=== PATIENT | female | born 1965 | race African-American/Black ===

== ENCOUNTER 2016-03-31 18:11 | Emergency (ER) | payer OTHER ==
[~2016-03-31] VITALS: Ht 165.1 cm; Wt 59.0 kg
--- NOTE | ~2016-03-31 | EKG ---
[place] [address] [facility] [place] [address] ELECTROCARDIOGRAM REPORT Name: ASHANTI JAQUEZ Room #: DEP STEFANY Mcdonnell#: [id number] Admission: 03/31/16 Attend Phys: Discharge: 03/31/16 Date of : 61 Report #: [id number] THIS REPORT FOR: //name// [facility] ED Test Date: 2016-03-31 Test Time: 18:16:53 Pat Name: ASHANTI JAQUEZ Department: Room: Gender: F Plant General Manager: ,, : 1965 Requested By: Abi Prince Order Number: [id number] MD: Robinson Patel Measurements Intervals [place] Rate: 99 P: 61 NC: 152 QRS: 46 QRSD: 96 T: 25 QT: 376 QTc: 483 Interpretive Statements Sinus rhythm No significant abnormality No previous ECG available for comparison Electronically Signed On 04-02-2016 14:10:05 MEDICAL CHARGE ENTRY SPECIALIST by Robinson Patel [email or web address] <ELECTRONICALLY SIGNED> By: Robinson Patel MD, [facility] 04/02/16 1410 1816 1816 Robinson Patel MD, FAC /EPI
[2016-03-31 18:44] LABS: ABSOLUTE NEUTROPHILS 2.3 thou/uL (1.4-8.2); BASOPHILS 0.9 % (0.0-2.0); EOSINOPHILS 1.6 % (0.0-3.0); HEMATOCRIT 30.9 % (37.0-47.0); HEMOGLOBIN 10.7 gm/dL (12.0-15.0); LYMPHOCYTES 45.7 % (24.0-44.0); MCH 35.3 pg (26.0-34.0); MCHC 34.4 % (28.0-37.0); MCV 102.4 fL (80.0-100.0); MONOCYTES 9.4 % (1.0-8.0); PLATELET COUNT 177 thou/uL (150-400); POLYS 42.4 % (36.0-66.0); RBC 3.02 mil/uL (4.20-5.00); RDW 14.2 % (10.5-14.5); WBC 5.3 thou/uL (4.0-11.0)
[2016-03-31 18:45] LABS: MANUAL DIFF NO
[2016-03-31 18:56] LABS: ANION GAP 14 mmol/L (7-16); BUN 10 mg/dL (7-18); CALCIUM 8.9 mg/dL (8.5-10.1); CHLORIDE 104 mmol/L (98-107); CO2 29 mmol/L (21-32); CREATININE 0.8 mg/dL (0.6-1.3); GLUCOSE 160 mg/dL (70-99); POTASSIUM 3.4 mmol/L (3.5-5.1); SODIUM 147 mmol/L (136-145)
[2016-03-31 19:05] LABS: ALBUMIN 3.2 g/dL (3.4-5.0); ALKALINE PHOSPHATASE 368 U/L (46-116); SGOT 76 U/L (15-37); SGPT 22 U/L (30-65); TOTAL BILIRUBIN 0.5 mg/dL (<0.1-1.0); TROPONIN-I < 0.04 ng/mL (<0.04-0.07)
[2016-03-31 20:08] VITALS: BP 151/95
[2016-03-31] MEDS ORDERED: PREDNISONE 20 M20 MG PO (20:12)
[2016-03-31] MEDS ORDERED: DOXYCYCLINE 10100 MG PO (20:12)
[2016-03-31] MEDS ORDERED: VENTOLIN HFA 1818 GM INH (20:12)
== END 2016-03-31 20:26 | disposition home or self-care (01) ==
LOC: ER 18:11
PROVIDERS: Emergency Medicine
DX: J20.9 Acute bronchitis, unspecified (principal); R06.00 Dyspnea, unspecified; I10 Essential (primary) hypertension; E11.9 Type 2 diabetes mellitus without complications; F17.210 Nicotine dependence, cigarettes, uncomplicated; F10.99 Alcohol use, unspecified with unspecified alcohol-induced disorder

== ENCOUNTER 2016-04-10 21:47 | Emergency (ER) | payer OTHER ==
[~2016-04-10] VITALS: Ht 167.6 cm; Wt 63.5 kg
--- NOTE | ~2016-04-10 | EKG ---
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: VANESSA : 1965 Requested By: Abi Prince Order Number: [id number] MD: Robinson Patel Measurements Intervals [place] Rate: 90 P: 46 MS: 166 QRS: 34 QRSD: 98 T: 33 QT: 414 QTc: 507 Interpretive Statements Sinus rhythm No significant abnormality Compared to ECG 03/31/2016 18:16:53 No significant changes Electronically Signed On 04-11-2016 7:50:47 PILING CUTTER by Robinson Patel [email or web address] <ELECTRONICALLY SIGNED> By: Robinson Patel MD, [facility] 04/11/16 0750 2154 2154 Robinson Patel MD, FACC /EPI
--- NOTE | ~2016-04-10 | EKG ---
[place] [address] [employer] [facility] [place] [address] ELECTROCARDIOGRAM REPORT Name: LEONOR JAQUEZMIE [facility] #: [facility] [id number] Admission: 04/10/16 Attend Phys: Discharge: 04/11/16 Date of : 61 Report #: [id number] THIS REPORT FOR: //name// [facility] ED Test Date: 2016-04-11 Test Time: 00:28:21 Pat Name: ASHANTI JAQUEZ Department: Room: Gender: F Fishing Vessel Mate: ander : 1965 Requested By: Abi Prince Order Number: [id number] MD: Robinson Patel Measurements Intervals [place] Rate: 87 P: 46 UT: 192 QRS: 34 QRSD: 95 T: -1 QT: 430 QTc: 518 Interpretive Statements Sinus rhythm Atrial premature complex Prolonged QT interval Nonspecific T wave abnormality Compared to ECG 03/31/2016 18:16:53 Atrial premature complex(es) now present Prolonged QT interval now present Electronically Signed On 04-11-2016 7:51:29 DINING ROOM MAID by Robinson Patel [email or web address] <ELECTRONICALLY SIGNED> By: Robinson Patel MD, [facility] 04/11/16 0751 0028 Robinson Patel MD, [facility] /EPI
[~2016-04-10 21:47] MED LIST: DOXYCYCLINE 10100 MG PO; PREDNISONE 20 M20 MG PO; VENTOLIN HFA 1818 GM INH
[2016-04-10 22:37] LABS: HEMATOCRIT 28.9 % (37.0-47.0); HEMOGLOBIN 9.8 gm/dL (12.0-15.0); MCH 35.5 pg (26.0-34.0); MCHC 34.1 % (28.0-37.0); MCV 104.2 fL (80.0-100.0); PLATELET COUNT 162 thou/uL (150-400); RBC 2.77 mil/uL (4.20-5.00); RDW 14.6 % (10.5-14.5); WBC 5.6 thou/uL (4.0-11.0)
[2016-04-10 22:40] LABS: MANUAL DIFF YES
[2016-04-10 22:47] LABS: ANION GAP 14 mmol/L (7-16); BUN 15 mg/dL (7-18); CALCIUM 8.7 mg/dL (8.5-10.1); CHLORIDE 101 mmol/L (98-107); CO2 27 mmol/L (21-32); CREATININE 0.8 mg/dL (0.6-1.3); GLUCOSE 227 mg/dL (70-99); POTASSIUM 3.4 mmol/L (3.5-5.1); SODIUM 142 mmol/L (136-145)
[2016-04-10 22:50] LABS: APTT 26.4 Seconds (24.5-32.8); PROTIME 10.7 Seconds (9.3-11.4)
[2016-04-10 23:01] LABS: ALBUMIN 3.5 g/dL (3.4-5.0); ALKALINE PHOSPHATASE 369 U/L (46-116); NT-PRO BRAIN NAT PEPTIDE 30 pg/mL (<300); SGOT 124 U/L (15-37); SGPT 31 U/L (30-65); TOTAL BILIRUBIN 0.5 mg/dL (<0.1-1.0); TOTAL PROTEIN 8.4 g/dL (6.4-8.2); TROPONIN-I < 0.04 ng/mL (<0.04-0.07)
[2016-04-10 23:06] LABS: ABSOLUTE NEUTROPHILS 2.6 thou/uL (1.4-8.2); MACROCYTES 1+; TOTAL CELL COUNT 100
[2016-04-11] MEDS ORDERED: CHLORDIAZEPOXID25 M1 PO (01:00)
[2016-04-11 01:26] VITALS: BP 98/62
== END 2016-04-11 01:27 | disposition home or self-care (01) ==
LOC: ER 21:47
PROVIDERS: Emergency Medicine
DX: R07.89 Other chest pain (principal); F10.129 Alcohol abuse with intoxication, unspecified; I10 Essential (primary) hypertension; E11.9 Type 2 diabetes mellitus without complications; F17.210 Nicotine dependence, cigarettes, uncomplicated; F15.10 Other stimulant abuse, uncomplicated; Y90.8 Blood alcohol level of 240 mg/100 ml or more

== ENCOUNTER 2017-02-04 01:34 | Inpatient (IN) | payer OTHER ==
[2017-02-04] VITALS (7 sets, daily range): BP systolic 102–157; BP diastolic 69–96
[~2017-02-04] VITALS: Ht 167.6 cm; Wt 66.8 kg
--- NOTE | ~2017-02-04 | HC ---
[facility] [place] [address] CONSULTATION Name: ASHANTI JAQUEZ Room #: 204-P [facility] Maged Mcdonnell#: [id number] Admission: 02/04/17 Attend Phys: Anderson Rosario MD Discharge: Date of : 61 Report #: [id number] THIS REPORT FOR: //name// CC: Anderson KOEHLER PCP DATE OF SERVICE: 02/04/2017 REASON FOR CONSULTATION: Chest pain. HISTORY OF PRESENT ILLNESS: The patient is a 51-year-old woman with hypertension, prior cardiac arrest with defibrillator implantation, hypertension and diabetes. She has terrible arthritic neck pain and was seen at [facility] about a week ago and admitted. Her father and for a variety of family reasons, signed out AMA to be with her mother and other family members. She was admitted for the same problem that she was admitted with now which is upper neck and back pain. This has a positional component. She has occasional chills. She denies fevers. She denies chest heaviness, pressure or ischemic type symptoms. No orthopnea, paroxysmal nocturnal dyspnea or lower extremity edema. She reports that her defibrillator was assessed during her hospitalization a week ago and no problems or rhythm abnormalities were identified. She normally sees Dr. Diaz. 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 A recent echocardiogram, which I have reviewed, demonstrated normal left ventricular systolic function, valvular heart disease was absent. ALLERGIES: No known drug allergies. MEDICATIONS: Include carvedilol 25 mg twice daily, Aldactone 25 mg twice daily, Zestril 5 mg daily, glipizide 5 mg daily. PAST MEDICAL HISTORY: Notable for hypertension, diabetes, prior cardiac arrest in [address] Decl[facility] ICD placement. SOCIAL HISTORY: She is a smoker and drinker. FAMILY HISTORY: Unremarkable for premature coronary artery disease. REVIEW OF SYSTEMS: All systems negative except as that noted above. PHYSICAL EXAMINATION: GENERAL: A pleasant woman who describes ongoing neck and upper chest pain. VITAL SIGNS: Blood pressure is 125/78, heart rate of 85 and regular. She is afebrile, 5 feet 6 inches tall, 141 pounds. HEENT: There are neither xanthelasma, subcutaneous xanthomata, oral mucosal or digital cyanosis or kyphoscoliosis present. CHEST: Clear to auscultation and percussion. [facility] [address] [place] [address] CONSULTATION Name: [facility] Room #: [address] [place] [address] Maged Mcdonnell#: [id number] Admission: 02/04/17 Attend Phys: Anderson Rosario MD Discharge: Date of : 61 Report #: [id number] CARDIOVASCULAR: Regular rate and rhythm with normal S1, S2. Jugular venous pressure is not elevated. ABDOMEN: Soft and nontender. EXTREMITIES: Without edema. Radial pulses are 2+. NEUROLOGIC: She is alert with a nonfocal exam. LABORATORY DATA: Sodium 144, potassium 3.6, creatinine 0.9, alkaline phosphatase 162, ALT 15, GGTP 358. ProBNP is normal. Alcohol level of 321 while tox screen negative. White count 6.8, hemoglobin 8.8, platelet count 204. RADIOLOGICAL DATA: Chest x-ray is normal. EKG sinus rhythm, normal tracing. IMPRESSION: 1. Upper neck and chest pain consistent with musculoskeletal discomfort. 2. History of remote cardiac arrest with ICD placement. 3. Hypertension. 4. Diabetes. 5. Alcohol dependency. 6. Tobacco dependency. RECOMMENDATIONS: 1. Resume usual cardiac medicines. 2. Volume status is stable. No additional cardiovascular testing is needed at this point. She has had her ICD recently interrogated. Her presenting pain I do not believe is related to myocardial ischemia. I have discussed these issues with the patient in detail. Thank you for asking me to participate in her care. I will be available as issues and problems arise. I agree with aggressive correction of multiple metabolic derangements as has been started. <ELECTRONICALLY SIGNED> By: Robinson Patel MD, FACC 02/05/17 0748 0823 1816 Robinson Patel MD, FACC /nt
--- NOTE | ~2017-02-04 | EKG ---
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 Receptionist: LEANDRA : 1965 Requested By: Mauro Deluna Order Number: [id number] MD: Robinson Patel Measurements Intervals [place] Rate: 96 P: 64 DC: 185 QRS: 55 QRSD: 93 T: 37 QT: 396 QTc: 501 Interpretive Statements Sinus rhythm Borderline prolonged QT interval Compared to ECG 05/12/2016 22:07:02 Sinus tachycardia no longer present QT interval shortened ST and T wave abnormality less pronounced Electronically Signed On 02-04-2017 11:23:22 SQL SERVER DBA by Robinson Patel [email or web address] <ELECTRONICALLY SIGNED> By: Robinson Patel MD, [facility] 02/04/17 1123 0140 0140 Robinson Patel MD, [facility] /EPI
[~2017-02-04 01:34] MED LIST changes: +CHLORDIAZEPOXID25 M1 PO
[2017-02-04] MEDS ORDERED: CARVEDILOL25 MG PO (01:49)
[2017-02-04] MEDS ORDERED: ALDACTONE25 MG PO (01:49)
[2017-02-04] MEDS ORDERED: LISINOPRIL5 MG PO (01:50)
[2017-02-04] MEDS ORDERED: GLUCOTROL5 MG PO (01:50)
[2017-02-04 01:59] LABS: HEMATOCRIT 27.3 % (37.0-47.0); HEMOGLOBIN 8.8 gm/dL (12.0-15.0); MCH 31.4 pg (26.0-34.0); MCHC 32.3 g/dL (28.0-37.0); PLATELET COUNT 204 thou/uL (150-400); RBC 2.81 mil/uL (4.20-5.00); RDW 15.9 % (10.5-14.5); WBC 6.8 thou/uL (4.0-11.0)
[2017-02-04 02:02] LABS: ANION GAP 12 mmol/L (7-16); BUN 15 mg/dL (7-18); CALCIUM 9.3 mg/dL (8.5-10.1); CHLORIDE 104 mmol/L (98-107); CO2 28 mmol/L (21-32); CREATININE 0.9 mg/dL (0.6-1.0); GLUCOSE 136 mg/dL (74-106); MANUAL DIFF YES; POTASSIUM 3.6 mmol/L (3.5-5.1); SODIUM 144 mmol/L (136-145)
[2017-02-04 02:11] LABS: ALBUMIN 3.3 g/dL (3.4-5.0); ALKALINE PHOSPHATASE 162 U/L (46-116); MAGNESIUM 1.4 mg/dL (1.8-2.4); SALICYLATE < 2.8 mg/dL (2.8-20.0); SGOT 37 U/L (15-37); SGPT 15 U/L (30-65); TOTAL BILIRUBIN 0.6 mg/dL (<0.1-1.0); TROPONIN-I < 0.04 ng/mL (<0.06)
[2017-02-04 02:12] LABS: APTT 28.5 Seconds (24.5-32.8)
[2017-02-04 02:13] LABS: ACETAMINOPHEN < 2 ug/mL (10-30)
[2017-02-04 02:27] LABS: ABSOLUTE NEUTROPHILS 3.7 thou/uL (1.4-8.2); LARGE PLATELETS OCCASIONAL; TOTAL CELL COUNT 100
[2017-02-04 05:21] LABS: PHOSPHORUS 3.4 mg/dL (2.5-4.9)
[2017-02-04] MEDS ORDERED: METFORMIN HCL500 MG PO (05:38)
[2017-02-04] MEDS ORDERED: ASPIR 8181 M1 PO (05:39)
[2017-02-04] MEDS ORDERED: FOLIC ACID1 MG PO (05:45)
[2017-02-04] MEDS ORDERED: CENTRUM SILVER1 EAC4 PO (05:48)
[2017-02-04 06:42] LABS: FOLIC ACID > 40.0 ng/mL (8.6-58.9)
[2017-02-04 06:51] LABS: URINE BILIRUBIN NEGATIVE (Negative); URINE BLOOD 3+ (Negative); URINE COLOR RED; URINE GLUCOSE-RANDOM* 3+ (Negative); URINE KETONES 1+ (Negative); URINE PROTEIN (DIPSTICK) 3+ (Negative)
[2017-02-04 07:00] LABS: AMP/METHAMP Negative (Negative); BARBITURATES Negative (Negative); BENZODIAZEPINES Negative (Negative); COCAINE Negative (Negative); METHADONE Negative (Negative); OPIATES Negative (Negative); PCP Negative (Negative); THC Negative (Negative)
[2017-02-04 07:02] LABS: URINE LEUKOCYTES-REFLEX 2+ (Negative)
[2017-02-04 07:03] LABS: CASTS None Seen /LPF (None Seen); CRYSTALS None Seen /LPF (None Seen); SQUAMOUS None Seen /LPF (0-3); URINE RBC >20 Many /HPF (0-2)
[2017-02-04 07:04] LABS: URINE WBC-REFLEX 0-5 Rare /HPF (0-5)
[2017-02-04 12:17] LABS: % SATURATION 13 % (20-39); IRON 41 ug/dL (50-170); TIBC 322 ug/dL (250-450); UIBC 281 ug/dL
[2017-02-04 15:05] LABS: FREE T4 1.2 ng/dL (0.82-1.77)
[2017-02-05 03:45] LABS: HEMATOCRIT 24.9 % (37.0-47.0); HEMOGLOBIN 8.1 gm/dL (12.0-15.0); MCH 31.6 pg (26.0-34.0); MCHC 32.5 g/dL (28.0-37.0); MCV 97.2 fL (80.0-100.0); RBC 2.56 mil/uL (4.20-5.00); RDW 15.7 % (10.5-14.5); WBC 6.3 thou/uL (4.0-11.0)
[2017-02-05 03:59] LABS: ALBUMIN 2.6 g/dL (3.4-5.0); CALCIUM 8.9 mg/dL (8.5-10.1); CREATININE 0.7 mg/dL (0.6-1.0); POTASSIUM 4.7 mmol/L (3.5-5.1); TOTAL BILIRUBIN 0.9 mg/dL (<0.1-1.0); TOTAL PROTEIN 7.6 g/dL (6.4-8.2)
[2017-02-05 04:48] VITALS: BP 132/86
[2017-02-05 07:35] VITALS: BP 139/95
[2017-02-05 09:06] LABS: IgA 461 mg/dL (87-352); IgG 1560 mg/dL (700-1600); IgM 159 mg/dL (26-217)
[2017-02-05] MEDS ORDERED: HYDROCODONE-AP1 EAC6 PO (09:51)
[2017-02-05 11:41] VITALS: BP 157/95
[2017-02-05] MEDS ORDERED: CIPRO500 MG PO (12:54)
[2017-02-05] MEDS ORDERED: PROTONIX40 M1 PO (12:54)
[2017-02-05 15:34] VITALS: BP 110/68
[2017-02-05 17:15] VITALS: BP 110/68
[2017-02-06 13:09] LABS: KAPPA/LAMBDA RATIO 1.16 (0.26-1.65); LAMBDA FREE LIGHT CHAINS 55.8 mg/L (5.7-26.3)
== END 2017-02-05 18:00 | disposition home or self-care (01) | DRG 313 ==
LOC: ER 01:34 → EROBS 03:28 → 2N 03:28
PROVIDERS: Emergency Medicine; Hospitalist; Internal Medicine; Nurse Practitioner Family
DX: R07.89 Other chest pain (principal); N39.0 Urinary tract infection, site not specified; F10.239 Alcohol dependence with withdrawal, unspecified; I10 Essential (primary) hypertension; J44.9 Chronic obstructive pulmonary disease, unspecified; I25.10 Atherosclerotic heart disease of native coronary artery without angina pectoris; E11.9 Type 2 diabetes mellitus without complications; F17.210 Nicotine dependence, cigarettes, uncomplicated; D64.9 Anemia, unspecified; E83.42 Hypomagnesemia; M19.90 Unspecified osteoarthritis, unspecified site; F39 Unspecified mood [affective] disorder; F10.229 Alcohol dependence with intoxication, unspecified; Z95.810 Presence of automatic (implantable) cardiac defibrillator; Z79.899 Other long term (current) drug therapy; Z71.41 Alcohol abuse counseling and surveillance of alcoholic; Z71.6 Tobacco abuse counseling; Z79.82 Long term (current) use of aspirin; Z83.3 Family history of diabetes mellitus; Z82.49 Family history of ischemic heart disease and other diseases of the circulatory system
CPT/HCPCS: 10081

== ENCOUNTER 2017-02-08 17:33 | Inpatient (IN) | payer OTHER ==
[~2017-02-08] VITALS: Ht 167.6 cm; Wt 65.0 kg
--- NOTE | ~2017-02-08 | HC ---
[facility] [place] [address] CONSULTATION Name: ASHANTI JAQUEZ Room #: 214-P ADM IN M.R.#: [id number] Admission: 02/08/17 Attend Phys: Asad Macario DO Discharge: Date of : 61 Report #: [id number] THIS REPORT FOR: //name// CC: Asad Macario NO PCP REASON FOR CONSULTATION: I was asked to evaluate concerning positive blood cultures. HISTORY OF PRESENT ILLNESS: The patient was a 51-year-old with history of alcohol intoxication, neck pain for the last week or two. She does have an AICD with a history of hypertension, coronary artery disease, cardiac arrest in 2009. She has alcoholic cardiomyopathy. She was hospitalized in 01/2012 with chest pain and alcohol intoxication. Her initial evaluation notes no headache or neurologic issues. She was later dismissed. Blood cultures that were obtained have grown coag-negative staph from 02/04/2017. Then, on 02/08/2017, she grew bacillus species. No documented fever or chills. She does have occasional sweat. She reports that this is related to her menopause. REVIEW OF SYSTEMS: Notes no skin lesions or wounds. She has denied street drugs. Reports her pain mostly in her posterior neck and headache mostly on the right. She does have some complaints of pain down her arms, but not typical radicular symptoms. There has been no weakness in her arms. There has been no change in lower extremity strength. She has had no complaint of unsteadiness. Denies any specific trauma. Actually had a CT scan of her cervical spine and head in April, which showed degenerative joint disease. No cough or sputum production. No chest pain. No nausea, vomiting or diarrhea. No dysuria or frequency. LABORATORY STUDIES: From her previous admission notes a sedimentation rate of 131. Her immunoglobulins showed a mild increase in her IgA with a normal immunofixation pattern. Her B12 and folate were adequate. She has mild increase in kappa and lambda chains with a normal ratio. Her urinalysis on that admission showed protein, glucose, ketones and some blood. Repeat urinalysis this admission was normal. ALLERGIES: None known. MEDICATIONS: As noted on MAY, including ciprofloxacin at some point in time, unclear if she was dismissed home on this or not. She was on ceftriaxone for 24 hours during her last hospital stay. PAST MEDICAL HISTORY: Hypertension, diabetes, cardiac arrest, [facility]. Declan ICD, alcoholic cardiomyopathy, tobacco use. SOCIAL HISTORY: In addition to the above, unremarkable. [facility] [address] [place] [address] CONSULTATION Name: [facility] Room #: 214-P [facility] IN M.R.#: [id number] Admission: 02/08/17 Attend Phys: Asad Macario DO Discharge: Date of : 61 Report #: [id number] FAMILY HISTORY: Noncontributory. REVIEW OF SYSTEMS: As noted above. PHYSICAL EXAMINATION: VITAL SIGNS: Afebrile, hemodynamically stable. GENERAL: She is alert, cooperative and pleasant, in no acute distress. SKIN: Unremarkable. LYMPH: Unremarkable. HEENT: Unremarkable. NECK: Tender posteriorly throughout the cervical spine. No adenopathy in the neck. She did guard a bit when doing range of motion. No axillary adenopathy. CHEST: Clear. HEART: Regular. AICD pocket unremarkable. ABDOMEN: Soft, nontender. No hepatosplenomegaly or mass appreciated. EXTREMITIES: Unremarkable. Strength in her upper extremities and lower extremities is normal. Sensation intact. Deep tendon reflexes normal. LABORATORY STUDIES: Blood cultures as noted above with 1 of 2 from 02/04/2017 growing coag-negative staph, and 1 of 2 from 02/08/2017 showing a bacillus species. Sodium 138, potassium 4, bicarbonate 27, creatinine 1.1, glucose 128. Liver function tests: Alkaline phosphatase 120, ALT 12. Alcohol level was negative this admission, was 321 on last admission. Drug screen was positive for opiates. Hemoglobin 8.4, WBC 5.2, platelet count 255,000, 72% neutrophils, 16% lymphs. During the last hospital stay, her sedimentation rate was 131. X-rays of the thoracic spine, unremarkable. C-spine, degenerative arthritis. Zenker's diverticulum in the proximal esophagus and chest x-ray was clear. IMPRESSION: A 51-year-old with alcoholism and recent hospitalization for acute alcohol intoxication. She had 2 blood cultures that were positive over this 4-day span, different organisms, most consistent with contamination Cervical neck pain seems most likely musculoskeletal in nature. I questioned whether she had an injury or fall associated with her intoxication. This would not explain, however, the elevated sedimentation rate. PLAN: I would recommend further imaging of her cervical spine to ensure neither infectious or traumatic injury is present. We will repeat her sedimentation rate and CRP. We will withhold antibiotics at this time. We will have Cardiology perform echocardiogram and proceed from there. <ELECTRONICALLY SIGNED> By: Mauro Rhodes MD 02/11/17 0918 1048 180 Mauro Rhodes MD /nt
--- NOTE | ~2017-02-08 | 2DMMODE ---
[facility] [address] [place] [address] 2 D/M-MODE ECHOCARDIOGRAM Name: ASHATNI JAQUEZ Room #: 214-P ADM IN M.R.#: [id number] Admission: 02/08/17 Attend Phys: Asad Macario, Discharge: Date of : 61 Date of Service: 02/12/17 0941 Report #: [id number] THIS REPORT FOR: //name// ADDENDUM APPROVED REPORT Study performed: 02/12/2017 08:01:16 EXAM: Comprehensive 2D, Doppler, and color-flow Echocardiogram Patient Location: Bedside Room #: 214 Status: stat BSA: 1.73 HR: 82 bpm BP: 116/74 mmHg Rhythm: NSR Other Information Study Quality: Adequate/patient restless Indications Positive blood cultures. Hx: Cardiac arrest, AICD, alcoholic cardiomyopathy, HTN, DM. 2D Dimensions RVDd: 33.64 mm LVEF(%): 55.75 (>50%) IVSd: 10.38 (7-11mm) LVOT Diam: 20.26 (18-24mm) LVDd: 48.57 mm PWd: 10.06 (7-11mm) Ascending Ao: 28.57 (22-36mm) LVDs: 34.44 (25-40mm) Aortic Root: 26.34 mm Barnes's LVEF: 55.75 % Volumes Left Atrial Volume (Systole) Single Plane 4CH: 34.02 mL Single Plane 2CH: 46.24 mL LA ESV Index: 26.00 mL/m2 Aortic Valve AoV Peak Rey.: 1.17 m/s AO Peak Gr.: 5.50 mmHg LVOT Max P.47 mmHg LVOT Max V: 0.79 m/s LOPEZ Vmax: 2.16 cm2 Mitral Valve E/A Ratio: 0.8 [facility] [place] [address] 2 D/M-MODE ECHOCARDIOGRAM Name: ASHANTI JAQUEZ Room #: 214-P [facility] IN .R.#: [id number] Admission: 02/08/17 Attend Phys: Asad Macario, Discharge: Date of : 61 Date of Service: 02/12/17 0941 Report #: [id number] MV Decel. Time: 216.90 ms MV E Max Rey.: 0.46 m/s MV A Rey.: 0.61 m/s MV PHT: 62.90 ms IVRT: 69.20 ms Pulmonary Valve PV Peak Rey.: 0.88 m/s PV Peak Gr.: 3.07 mmHg Pulmonary Vein P Vein S: 0.78 m/s P Vein A: 0.36 m/s P Vein D: 0.42 m/s P Vein A Dur.: 121.1 msec P Vein S/D Ratio: 1.86 Tricuspid Valve TR Peak Rey.: 2.48 m/s RAP Estimate: 5.00 mmHg TR Peak Gr.: 24.57 mmHg PA Pressure: 30.00 mmHg Left Ventricle The left ventricle is normal size. There is normal left ventricular wall thickness. Left ventricular systolic function is normal. LVEF is 50-50%. Mild diastolic dysfunction is present (impaired relaxation pattern). Right Ventricle The right ventricle is normal size. The right ventricular systolic function is normal. Atria The left atrium size is normal. The right atrium size is normal. Aortic Valve The aortic valve is normal in structure. No aortic regurgitation is present. There is no aortic valvular stenosis. Mitral Valve The mitral valve is normal in structure. Mild mitral regurgitation. Tricuspid Valve The tricuspid valve is normal in structure. Mild tricuspid regurgitation. Estimated PAP is 30mmHg. Pulmonic Valve [address] [address] 2 D/M-MODE ECHOCARDIOGRAM Name: [facility] Room #: 214-P ADM IN ..#: [id number] Admission: 02/08/17 Attend Phys: Asad Macario, Discharge: Date of : 61 Date of Service: 02/12/17 0941 Report #: [id number] The pulmonary valve is normal in structure. Trace pulmonic regurgitation. Great Vessels The aortic root is normal in size. The ascending aorta is normal in size. IVC is normal in size and collapses >50% with inspiration. Pericardium There is no pericardial effusion. <Conclusion> The left ventricle is normal size. LVEF is 45-50%. The aortic valve is normal in structure. The mitral valve is normal in structure. Mild mitral regurgitation. The tricuspid valve is normal in structure. Mild tricuspid regurgitation. Estimated PAP is 30mmHg. The pulmonary valve is normal in structure. Trace pulmonic regurgitation. There is no pericardial effusion. <ELECTRONICALLY SIGNED> By: Gurdeep Mckeon MD 02/12/17940 0 0 Gurdeep Mckeon MD /INF
[~2017-02-08 17:33] MED LIST changes: +ALDACTONE25 MG PO; +ASPIR 8181 M1 PO; +CARVEDILOL25 MG PO; +CENTRUM SILVER1 EAC4 PO; +CIPRO500 MG PO; +FOLIC ACID1 MG PO; +GLUCOTROL5 MG PO; +HYDROCODONE-AP1 EAC6 PO; +LISINOPRIL5 MG PO; +METFORMIN HCL500 MG PO; +PROTONIX40 M1 PO
[2017-02-08 17:38] VITALS: BP 132/82
[2017-02-08 18:36] LABS: HEMATOCRIT 29.7 % (37.0-47.0); HEMOGLOBIN 9.6 gm/dL (12.0-15.0); MCH 31.5 pg (26.0-34.0); MCHC 32.4 g/dL (28.0-37.0); MCV 97.3 fL (80.0-100.0); PLATELET COUNT 332 thou/uL (150-400); RBC 3.05 mil/uL (4.20-5.00); WBC 8.2 thou/uL (4.0-11.0)
[2017-02-08 18:37] LABS: MANUAL DIFF YES
[2017-02-08 18:45] LABS: CALCIUM 10.1 mg/dL (8.5-10.1)
[2017-02-08 18:49] LABS: ALBUMIN 3.3 g/dL (3.4-5.0); DIRECT BILIRUBIN 0.1 mg/dL (<0.1-0.3); TOTAL BILIRUBIN 0.6 mg/dL (<0.1-1.0); TOTAL PROTEIN 9.5 g/dL (6.4-8.2)
[2017-02-08 18:54] LABS: ABSOLUTE NEUTROPHILS 5.9 thou/uL (1.4-8.2); TOTAL CELL COUNT 100
[2017-02-08 19:27] LABS: URINE BILIRUBIN NEGATIVE (Negative); URINE BLOOD NEGATIVE (Negative); URINE COLOR YELLOW; URINE GLUCOSE-RANDOM* NEGATIVE (Negative); URINE KETONES NEGATIVE (Negative); URINE NITRITE NEGATIVE (Negative); URINE PROTEIN (DIPSTICK) TRACE (Negative); URINE SPECIFIC GRAVITY 1.025 (1.003-1.035); URINE UROBILINOGEN 0.2 E.U./dl (0.2-1.0)
[2017-02-08 19:36] LABS: AMP/METHAMP Negative (Negative); BARBITURATES Negative (Negative); BENZODIAZEPINES Negative (Negative); COCAINE Negative (Negative); METHADONE Negative (Negative); OPIATES POSITIVE (Negative); PCP Negative (Negative); THC Negative (Negative)
[2017-02-08 20:26] VITALS: BP 143/76
[2017-02-08 20:51] VITALS: BP 158/84
[2017-02-08 23:51] VITALS: BP 123/73
[2017-02-09 03:36] VITALS: BP 129/76
[2017-02-09 04:01] LABS: HEMATOCRIT 25.2 % (37.0-47.0); HEMOGLOBIN 8.4 gm/dL (12.0-15.0); MCH 32.3 pg (26.0-34.0); MCHC 33.2 g/dL (28.0-37.0); MCV 97.3 fL (80.0-100.0); RBC 2.59 mil/uL (4.20-5.00); RDW 15.7 % (10.5-14.5); WBC 5.2 thou/uL (4.0-11.0)
[2017-02-09 04:27] LABS: ALBUMIN 2.4 g/dL (3.4-5.0); CALCIUM 8.6 mg/dL (8.5-10.1); CREATININE 1.1 mg/dL (0.6-1.0); TOTAL BILIRUBIN 0.4 mg/dL (<0.1-1.0)
[2017-02-09 07:30] VITALS: BP 138/87
[2017-02-09 13:10] VITALS: BP 104/70
[2017-02-09 15:15] VITALS: BP 102/51
[2017-02-09 20:03] VITALS: BP 121/91
[2017-02-10 03:40] VITALS: BP 136/85
[2017-02-10 07:39] VITALS: BP 150/82
[2017-02-10 11:37] VITALS: BP 119/77
[2017-02-10 16:18] VITALS: BP 120/82
[2017-02-10 19:40] VITALS: BP 128/80
[2017-02-11 04:00] VITALS: BP 118/75
[2017-02-11 04:33] LABS: CALCIUM 9.3 mg/dL (8.5-10.1); CREATININE 0.9 mg/dL (0.6-1.0); POTASSIUM 4.3 mmol/L (3.5-5.1)
[2017-02-11 04:40] LABS: HEMATOCRIT 24.4 % (37.0-47.0); HEMOGLOBIN 7.9 gm/dL (12.0-15.0); MANUAL DIFF YES; MCH 31.5 pg (26.0-34.0); MCHC 32.3 g/dL (28.0-37.0); MCV 97.5 fL (80.0-100.0); PLATELET COUNT 291 thou/uL (150-400); RDW 15.4 % (10.5-14.5); WBC 5.5 thou/uL (4.0-11.0)
[2017-02-11 09:20] VITALS: BP 106/59
[2017-02-11 10:26] LABS: ABSOLUTE NEUTROPHILS 3.2 thou/uL (1.4-8.2); TOTAL CELL COUNT 100
[2017-02-11 10:27] LABS: ANISOCYTOSIS 1+; POLYCHROMASIA OCCASIONAL
[2017-02-11 12:13] LABS: % SATURATION 7 % (20-39); IRON 19 ug/dL (50-170); TIBC 279 ug/dL (250-450); UIBC 260 ug/dL
[2017-02-11 12:52] LABS: FERRITIN 108 ng/mL (8-252)
[2017-02-11 15:10] VITALS: BP 106/66
[2017-02-11 19:45] VITALS: BP 116/74
[2017-02-12 04:03] LABS: CALCIUM 9.5 mg/dL (8.5-10.1); CREATININE 1.1 mg/dL (0.6-1.0); MAGNESIUM 1.1 mg/dL (1.8-2.4); POTASSIUM 4.8 mmol/L (3.5-5.1)
[2017-02-12 04:21] LABS: HEMATOCRIT 24.9 % (37.0-47.0); HEMOGLOBIN 8.1 gm/dL (12.0-15.0); MCH 31.9 pg (26.0-34.0); MCHC 32.7 g/dL (28.0-37.0); MCV 97.6 fL (80.0-100.0); PLATELET COUNT 304 thou/uL (150-400); RBC 2.55 mil/uL (4.20-5.00); RDW 15.6 % (10.5-14.5); WBC 6.1 thou/uL (4.0-11.0)
[2017-02-12 04:37] LABS: MANUAL DIFF YES
[2017-02-12 05:52] LABS: ABSOLUTE NEUTROPHILS 4.5 thou/uL (1.4-8.2); ANISOCYTOSIS SLIGHT; ATYPICAL LYMPHS 2 %; MACROCYTES SLIGHT; TOTAL CELL COUNT 100
[2017-02-12 07:36] VITALS: BP 113/75
[2017-02-12 11:08] VITALS: BP 91/68
[2017-02-12 16:11] LABS: HIV ANTIBODY Non Reactive (Non Reactive)
[2017-02-12 16:31] VITALS: BP 104/69
[2017-02-12 20:30] VITALS: BP 116/79
[2017-02-13 04:15] VITALS: BP 107/59
[2017-02-13 04:22] LABS: HEMOGLOBIN 8.3 gm/dL (12.0-15.0); MCHC 33.1 g/dL (28.0-37.0); MCV 96.7 fL (80.0-100.0); PLATELET COUNT 315 thou/uL (150-400); RBC 2.59 mil/uL (4.20-5.00); RDW 15.3 % (10.5-14.5); WBC 5.8 thou/uL (4.0-11.0)
[2017-02-13 04:24] LABS: MANUAL DIFF YES
[2017-02-13 05:41] LABS: ABSOLUTE NEUTROPHILS 3.6 thou/uL (1.4-8.2); TOTAL CELL COUNT 100
[2017-02-13 07:46] VITALS: BP 109/74
[2017-02-13 11:41] VITALS: BP 117/71
== END 2017-02-13 14:15 | disposition left against medical advice (07) | DRG 552 ==
LOC: ER 17:33 → 2N 19:41 → EROBS 19:41 → 2N 20:26 → ENTRNSPT 02-09 15:12 → EDTRNSPTSTS 02-09 15:18 → 2N 02-13 14:15
PROVIDERS: Hospitalist; Internal Medicine Geriatric Medicine; Nurse Practitioner; Registered Nurse; Specialist
PROC: B24BZZ4 Ultrasonography of Heart with Aorta, Transesophageal (ICD-10-PCS; principal; 2017-02-12)
DX: M47.892 Other spondylosis, cervical region (principal); I42.6 Alcoholic cardiomyopathy; I10 Essential (primary) hypertension; E11.9 Type 2 diabetes mellitus without complications; I25.10 Atherosclerotic heart disease of native coronary artery without angina pectoris; F17.210 Nicotine dependence, cigarettes, uncomplicated; F10.220 Alcohol dependence with intoxication, uncomplicated; D50.0 Iron deficiency anemia secondary to blood loss (chronic); I25.2 Old myocardial infarction; Z86.74 Personal history of sudden cardiac arrest; Z95.810 Presence of automatic (implantable) cardiac defibrillator; Z79.82 Long term (current) use of aspirin; Z79.899 Other long term (current) drug therapy; Z82.49 Family history of ischemic heart disease and other diseases of the circulatory system; Z83.3 Family history of diabetes mellitus
CPT/HCPCS: 10081

== ENCOUNTER 2017-06-17 22:40 | Emergency (ER) | payer OTHER ==
[~2017-06-17] VITALS: Ht 167.6 cm; Wt 70.3 kg
--- NOTE | ~2017-06-17 | EKG ---
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 : 1965 Requested By: Charlotte Lord Order Number: [id number] MD: Robinson Patel Measurements Intervals [place] Rate: 135 P: 0 GA: 103 QRS: 47 QRSD: 86 T: 261 QT: 327 QTc: 491 Interpretive Statements Sinus tachycardia Consider right atrial enlargement Diffuse nonspecific ST and T wave abnormality Compared to ECG 02/04/2017 01:40:04 ST and T wave abnormality is now present heart rate has increased Electronically Signed On 06-18-2017 7:55:55 CDT by Robinson Patel [email or web address] <ELECTRONICALLY SIGNED> By: Robinson Patel MD, [facility] 06/18/17 0755 2324 2324 Robinson Patel MD, [facility] /EPI
[2017-06-17 23:13] LABS: CREATININE 0.9 mg/dL (0.6-1.0); HEMATOCRIT 30.7 % (37.0-47.0); HEMOGLOBIN 10.4 gm/dL (12.0-15.0); MCH 35.3 pg (26.0-34.0); PLATELET COUNT 130 thou/uL (150-400); POTASSIUM 3.1 mmol/L (3.5-5.1); RBC 2.95 mil/uL (4.20-5.00); RDW 14.6 % (10.5-14.5); WBC 9.4 thou/uL (4.0-11.0)
[2017-06-17 23:51] LABS: ABSOLUTE NEUTROPHILS 3.8 thou/uL (1.4-8.2); MACROCYTES 1+
[2017-06-18 00:32] VITALS: BP 117/98
== END 2017-06-18 00:35 | disposition home or self-care (01) ==
LOC: ER 22:40
PROVIDERS: Emergency Medicine
DX: R06.00 Dyspnea, unspecified (principal); D64.9 Anemia, unspecified; I10 Essential (primary) hypertension; E87.6 Hypokalemia; R94.31 Abnormal electrocardiogram [ECG] [EKG]; F10.10 Alcohol abuse, uncomplicated; E11.9 Type 2 diabetes mellitus without complications; I46.9 Cardiac arrest, cause unspecified; F17.210 Nicotine dependence, cigarettes, uncomplicated

== ENCOUNTER 2018-03-29 21:33 | Emergency (ER) | payer OTHER ==
[~2018-03-29] VITALS: Ht 167.6 cm; Wt 63.5 kg
[2018-03-29 22:11] LABS: ABSOLUTE NEUTROPHILS 3.8 thou/uL (1.4-8.2); BASOPHILS 0.6 % (0.0-2.0); EOSINOPHILS 0.4 % (0.0-3.0); HEMATOCRIT 26.5 % (37.0-47.0); LYMPHOCYTES 27.3 % (24.0-44.0); MCH 36.9 pg (26.0-34.0); MCHC 33.9 g/dL (28.0-37.0); MCV 108.7 fL (80.0-100.0); MONOCYTES 10.1 % (1.0-8.0); PLATELET COUNT 195 thou/uL (150-400); POLYS 61.6 % (36.0-66.0); RBC 2.44 mil/uL (4.20-5.00); WBC 6.2 thou/uL (4.0-11.0)
[2018-03-29 22:23] LABS: ANION GAP 19 mmol/L (7-16); BUN 7 mg/dL (7-18); CALCIUM 8.7 mg/dL (8.5-10.1); CHLORIDE 102 mmol/L (98-107); CO2 24 mmol/L (21-32); CREATININE 0.7 mg/dL (0.6-1.0); GLUCOSE 111 mg/dL (74-106); POTASSIUM 3.3 mmol/L (3.5-5.1); SODIUM 145 mmol/L (136-145)
[2018-03-29 22:31] LABS: ALBUMIN 3.4 g/dL (3.4-5.0); SGOT 99 U/L (15-37); SGPT 26 U/L (30-65); TOTAL BILIRUBIN 0.9 mg/dL (<0.1-1.0); TOTAL PROTEIN 8.3 g/dL (6.4-8.2); TROPONIN-I <0.06 ng/mL (<0.06)
[2018-03-30 03:24] VITALS: BP 95/63
--- NOTE | 2018-03-31 21:52 | EKG ---
[address] [address] ELECTROCARDIOGRAM REPORT Name: LEONIDASHANTI MIGUEL [facility] [id number] Admission: 03/29/18 Attend Phys: Discharge: 03/30/18 Date of : 61 Report #: [id number] THIS REPORT FOR: //name// [facility] ED Test Date: 2018-03-29 Test Time: 22:07:07 Pat Name: ASHANTI JAQUEZ Department: Room: Gender: F Manager E Commerce: denise : 1965 Requested By: Harika Aguilar Order Number: [id number] MD: Eric Downey Measurements Intervals [place] Rate: 105 P: 63 NE: 170 QRS: 47 QRSD: 88 T: 18 QT: 363 QTc: 480 Interpretive Statements Sinus tachycardia Compared to ECG 06/17/2017 23:24:27 ST (T wave) deviation no longer present Electronically Signed On 03-31-2018 21:51:49 DRIVER EDUCATION INSTRUCTOR by Eric Downey [email or web address] <ELECTRONICALLY SIGNED> By: Eric Downey MD 03/31/182150 06 06 Eric Downey MD /[place]
== END 2018-03-30 03:24 | disposition home or self-care (01) ==
LOC: ER 21:33
PROVIDERS: Student in an Organized Health Care Education/Training Program
DX: F10.129 Alcohol abuse with intoxication, unspecified (principal); F17.210 Nicotine dependence, cigarettes, uncomplicated; I10 Essential (primary) hypertension; E11.9 Type 2 diabetes mellitus without complications; I42.9 Cardiomyopathy, unspecified; Y90.0 Blood alcohol level of less than 20 mg/100 ml

== ENCOUNTER 2018-04-09 06:54 | Inpatient (IN) | payer OTHER ==
[~2018-04-09] VITALS: Ht 167.6 cm; Wt 58.6 kg
[2018-04-09] VITALS (8 sets, daily range): BP systolic 97–127; BP diastolic 66–83
[2018-04-09 07:26] LABS: HEMOGLOBIN 6.9 gm/dL (12.0-15.0); MCH 37.5 pg (26.0-34.0); MCHC 34.3 g/dL (28.0-37.0); RBC 1.83 mil/uL (4.20-5.00); WBC 9.4 thou/uL (4.0-11.0)
[2018-04-09 07:28] LABS: MCV 109.4 fL (80.0-100.0); PLATELET COUNT 145 thou/uL (150-400); RDW 17.6 % (10.5-14.5)
[2018-04-09 07:34] LABS: ANION GAP 15 mmol/L (7-16); BUN 15 mg/dL (7-18); CALCIUM 8.9 mg/dL (8.5-10.1); CHLORIDE 92 mmol/L (98-107); CO2 27 mmol/L (21-32); CREATININE 0.9 mg/dL (0.6-1.0); GLUCOSE 147 mg/dL (74-106); POTASSIUM 3.5 mmol/L (3.5-5.1); SODIUM 134 mmol/L (136-145)
[2018-04-09 07:43] LABS: ALBUMIN 3.3 g/dL (3.4-5.0); DIRECT BILIRUBIN 1.4 mg/dL (<0.1-0.3); LIPASE 36 U/L (73-393); SGOT 81 U/L (15-37); SGPT 21 U/L (30-65); TOTAL PROTEIN 8.3 g/dL (6.4-8.2); TROPONIN-I <0.06 ng/mL (<0.06)
[2018-04-09 07:45] LABS: MAGNESIUM 0.8 mg/dL (1.8-2.4)
[2018-04-09 08:03] LABS: URINE CLARITY HAZY
[2018-04-09 08:04] LABS: URINE COLOR DK YELLOW; URINE GLUCOSE-RANDOM* TRACE (Negative); URINE KETONES 1+ (Negative); URINE PROTEIN (DIPSTICK) 2+ (Negative)
[2018-04-09 08:06] LABS: ICTOTEST (BILI CONFIRMATORY) Negative (Negative); URINE BILIRUBIN NEGATIVE (Negative); URINE BLOOD NEGATIVE (Negative)
[2018-04-09 08:07] LABS: URINE LEUKOCYTES-REFLEX 1+ (Negative); URINE NITRITE-REFLEX POSITIVE (Negative)
[2018-04-09 08:14] LABS: SQUAMOUS 0-3 Few /LPF (0-3)
[2018-04-09 08:15] LABS: CASTS None Seen /LPF (None Seen); MUCUS >6 Heavy strn/LPF (None Seen); URINE RBC None Seen /HPF (0-2); URINE WBC-REFLEX 0-5 Rare /HPF (0-5)
[2018-04-09 08:16] LABS: BACTERIA-REFLEX 1-9 Few /HPF (None Seen); CRYSTALS None Seen /LPF (None Seen)
[2018-04-09 08:47] LABS: ABSOLUTE NEUTROPHILS 7.3 thou/uL (1.4-8.2); ANISOCYTOSIS 2+; HYPOCHROMASIA 2+; MACROCYTES 2+; PLATELET ESTIMATE NORMAL
--- NOTE | 2018-04-09 09:24 | EKG ---
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
[2018-04-09 11:12] LABS: % SATURATION 57 % (20-39); IRON 95 ug/dL (50-170); TIBC 167 ug/dL (250-450)
--- NOTE | 2018-04-09 12:15 | 2DMMODE ---
[facility] [address] [facility] [employer] [place] [address] 2 D/M-MODE ECHOCARDIOGRAM Name: ASHANTI JAQUEZ GURUTONG Room #: 208-P ADM IN M.R.#: [id number] Admission: 04/09/18 Attend Phys: Ronald Vaughan, Discharge: Date of : 61 Date of Service: 04/09/18 1215 Report #: [id number] THIS REPORT FOR: //name// APPROVED REPORT Study performed: 04/09/2018 10:28:47 EXAM: Comprehensive 2D, Doppler, and color-flow Echocardiogram Patient Location: Bedside Room #: 208 Status: routine BSA: 1.62 HR: 95 bpm BP: 127/83 mmHg Rhythm: ICD Other Information Study Quality: Adequate Indications ICD: Diabetes Dyspnea Chest Pain Hypertension/HDD 2D Dimensions RVDd: 37.48 mm IVSd: 9.82 (7-11mm) LVOT Diam: 22.30 (18-24mm) LVDd: 42.73 mm PWd: 10.46 (7-11mm) Ascending Ao: 22.00 (22-36mm) LVDs: 30.45 (25-40mm) Aortic Root: 26.57 mm IVC: 11.00 mm Volumes Left Atrial Volume (Systole) Single Plane 4CH: 21.41 mL Single Plane 2CH: 35.98 mL LA ESV Index: 21.00 mL/m2 Aortic Valve AoV Peak Rey.: 1.20 m/s AO Peak Gr.: 5.74 mmHg LVOT Max P.60 mmHg LVOT Max V: 0.95 m/s LOPEZ Vmax: 3.09 cm2 [facility] [address] [place] [address] 2 D/M-MODE ECHOCARDIOGRAM Name: ASHANTI JAQUEZ Room #: 208-[facility]#: [id number] Admission: 04/09/18 Attend Phys: Ronald Vaughan, Discharge: Date of : 61 Date of Service: 04/09/18 1215 Report #: [id number] Mitral Valve E/A Ratio: 1.3 MV Decel. Time: 157.84 ms MV E Max Rey.: 0.64 m/s MV A Rey.: 0.48 m/s MV PHT: 45.77 ms IVRT: 106.11 ms Pulmonary Valve PV Peak Rey.: 0.83 m/s PV Peak Gr.: 2.74 mmHg Pulmonary Vein P Vein S: 0.47 m/s P Vein A: 0.23 m/s P Vein D: 0.33 m/s P Vein A Dur.: 110.7 msec P Vein S/D Ratio: 1.42 Tricuspid Valve TR Peak Rey.: 2.54 m/s TR Peak Gr.: 25.81 mmHg PA Pressure: 30.00 mmHg Left Ventricle The left ventricle is normal size. There is normal LV segmental wall motion. There is normal left ventricular wall thickness. The left ventricular systolic function is normal. The left ventricular ejection fraction is within the normal range. LVEF is 50-55%. This study is not technically sufficient to allow evaluation of the LV diastolic function. Right Ventricle The right ventricle is normal size. The right ventricular systolic function is normal. Device lead is present in the right ventricle. Atria The left atrium size is normal. The right atrium size is normal. Device lead is present in the right atrium. Aortic Valve The aortic valve is normal in structure. No aortic regurgitation is present. There is no aortic valvular stenosis. Mitral Valve The mitral valve is normal in structure. Trace mitral regurgitation. No evidence of mitral valve stenosis. Tricuspid Valve [address] [address] 2 D/M-MODE ECHOCARDIOGRAM [facility] Room #: 208[facility]P [facility] IN ..#: [id number] Admission: 04/09/18 Attend Phys: Ronald Vaughan, Discharge: Date of : 61 Date of Service: 04/09/18 1215 Report #: [id number] The tricuspid valve is normal in structure. There is mild tricuspid regurgitation. Estimated PAP 30 mmHg. There is mild pulmonary hypertension. Pulmonic Valve The pulmonary valve is normal in structure. There is no pulmonic valvular regurgitation. Great Vessels The aortic root is normal in size. IVC is normal in size and collapses >50% with inspiration. Pericardium There is no pericardial effusion. <Conclusion> The left ventricle is normal size. LVEF is 50-55%. The right ventricle is normal size. The right ventricular systolic function is normal. Device lead is present in the right ventricle. The right atrium size is normal. Device lead is present in the right atrium. The left atrium size is normal. The aortic valve is normal in structure. The mitral valve is normal in structure. Trace mitral regurgitation. The tricuspid valve is normal in structure. There is mild tricuspid regurgitation. Estimated PAP 30 mmHg. There is mild pulmonary hypertension. The pulmonary valve is normal in structure. There is no pericardial effusion. <ELECTRONICALLY SIGNED> By: Gurdeep Mckeon MD 04/09/18 1215 1215 14 Gurdeep Mckeon MD /INF
[2018-04-09 12:21] LABS: FOLIC ACID 2.3 ng/mL (8.6-58.9)
[2018-04-09 12:23] LABS: AMP/METHAMP Negative (Negative); BARBITURATES Negative (Negative); BENZODIAZEPINES Negative (Negative); COCAINE Negative (Negative); METHADONE Negative (Negative); OPIATES Negative (Negative); PCP Negative (Negative)
--- NOTE | 2018-04-09 16:44 | NUR ---
PT ADMITTED FROM ER WITH LOW MAG, ANEMIA, AND AICD FIRING. CARE OF PT ASSUMED AT APPROX 0940. MAG REPLACED X2 MORE DOSES. 1 UNIT PRBC TRANSFUSED. AICD INTERROGATED AND LOGGED MULTIPLE SVT EPISODES. NEG FOR FLU. REPORTS NAUSEA FOR 1WEEK AND DARK STOOLS ON LAST BM APPROX 5 DAYS AGO. PT REPORTS THAT SHE HAS NOT DRANK FOR 1 WEEK. ALCOHOL LEVEL 20. 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 WILL CONTINUE TO ASSESS. PT EDUCATED ON THIS. WILL DRAW F/U MAG TIMELY. BANANA BAG INFUSING. IV ABT INITIATED. ABD XRAY, CXR, ECHO AND ABD US COMPELTED THIS SHIFT. WILL F/U WITH PERTINENT RESULTS. ST/ST ON TELE SINCE ARRIVAL PT HAS LOW GRADE FEVER BUT ASYMPTOMATIC, VS OTHWERWISE STABLE. BS WNL. URINE COLLECTED. STOOL UNCOLLECTED DUE TO NO BM HAD. NO DISTRESS NOTED.
--- NOTE | 2018-04-09 21:52 | NUR ---
1900 - PT LAYING IN BED IN NAD. DENIES NEEDS AND C/O MILD NAUSEA. EDUCATED THAT SHE DOES HAVE ZOFRAN ON BOARD. OVERALL DORI'S NEGATIVE.
[2018-04-10 00:51] VITALS: BP 95/60
[2018-04-10 04:45] VITALS: BP 104/64
[2018-04-10 07:53] LABS: ABSOLUTE NEUTROPHILS 4.4 thou/uL (1.4-8.2); BASOPHILS 0.2 % (0.0-2.0); EOSINOPHILS 0.3 % (0.0-3.0); HEMATOCRIT 21.1 % (37.0-47.0); HEMOGLOBIN 7.5 gm/dL (12.0-15.0); LYMPHOCYTES 14.1 % (24.0-44.0); MCH 33.5 pg (26.0-34.0); MCHC 35.4 g/dL (28.0-37.0); MONOCYTES 8.7 % (1.0-8.0); PLATELET COUNT 124 thou/uL (150-400); POLYS 76.7 % (36.0-66.0); RBC 2.22 mil/uL (4.20-5.00); RDW 29.8 % (10.5-14.5); WBC 5.8 thou/uL (4.0-11.0)
[2018-04-10 07:56] LABS: MCV 94.7 fL (80.0-100.0)
[2018-04-10 08:01] LABS: CALCIUM 7.9 mg/dL (8.5-10.1); CREATININE 0.7 mg/dL (0.6-1.0); MAGNESIUM 1.7 mg/dL (1.8-2.4)
[2018-04-10 08:02] LABS: POTASSIUM 2.6 mmol/L (3.5-5.1)
[2018-04-10 08:35] VITALS: BP 118/65
[2018-04-10 09:20] LABS: ANISOCYTOSIS 2+; PLATELET ESTIMATE NORMAL
[2018-04-10 13:18] VITALS: BP 101/69
[2018-04-10 15:37] LABS: MAGNESIUM 2.2 mg/dL (1.8-2.4); POTASSIUM 4.2 mmol/L (3.5-5.1)
--- NOTE | 2018-04-10 15:37 | NUR ---
MET WITH PATIENT WHO ADMITS WITH WEAKNESS, N/V. SHE REPORTS SHE RESIDES AT HOME WITH HER MOTHER AND BROTHER. SHE REPORTS WEIGHT LOSS, WEAKNESS AND DECREASE IN APPETITE. SHE REPORTS MULTIPLE STEPS IN HOME THAT SHE HAS NOT HAD STRENGTH TO GO UP/DOWN. SHE BELIEVES SHE NEEDS A CANE. DISCUSSED PREV ADMISSIONS DUE TO ETOH. PATIENT REPORTS SHE HAS NOT HAD ANY ETOH FOR 8 DAYS. SHE REC DISABILITY AND HAS SUPPORTIVE FAMILY. THERAPY EVALS IN PROCESS. [facility] FOLLOWING.
[2018-04-10 17:04] VITALS: BP 95/60
--- NOTE | 2018-04-10 17:38 | NUR ---
PT CARE ASSUMED APPROX 0700. PT ALERT AND ORIENTED X4. DENIES PAIN AND SOA. VSS. BS ELEVATED THIS SHIFT. CONTROLLED WITH SSI. MAG REPLACED, K+ REPLACED. LEVELS RECHECKED AND WNL. IV ABT REMAINS IN POC. PT STARTED ON IV NS TO BRING UP NA+ LEVEL. PT GIVEN SUPPOSITORY AND HAD BM X3. UP TO BSC WITH SBA. APPETITE IMPROVED AND PT EDUCATED ON GOOD DIET. NO S/S OF ETOH WITHDRAWL. NO DISTRESS NOTED.
[2018-04-10 19:27] VITALS: BP 85/53
[2018-04-11 04:37] VITALS: BP 119/69
[2018-04-11 04:54] LABS: WBC 5.1 thou/uL (4.0-11.0)
[2018-04-11 04:57] LABS: MCH 33.6 pg (26.0-34.0); MCHC 34.8 g/dL (28.0-37.0); MCV 96.4 fL (80.0-100.0); RBC 1.87 mil/uL (4.20-5.00); RDW 29.8 % (10.5-14.5)
[2018-04-11 05:00] LABS: HEMOGLOBIN 6.3 gm/dL (12.0-15.0)
[2018-04-11 05:07] LABS: CALCIUM 7.5 mg/dL (8.5-10.1); CREATININE 0.6 mg/dL (0.6-1.0); POTASSIUM 3.9 mmol/L (3.5-5.1)
[2018-04-11 06:06] VITALS: BP 103/63; BP 120/86
--- NOTE | 2018-04-11 07:55 | NUR ---
PT. NO S/S OF ALCOHOL WITHDRAWL; ABLE TO REST DURING THE NIGHT; NO C/O PAIN; HMG LOW EARLY ON THE MORNING; PROVIDER CONTACTED; ORDERS RECEIVED; ASSESSMENT CHARGED. FOLLOWING POC;
[2018-04-11 08:05] VITALS: BP 97/41
[2018-04-11 11:47] LABS: ALBUMIN 2.3 g/dL (3.4-5.0); DIRECT BILIRUBIN 0.7 mg/dL (<0.1-0.3); TOTAL BILIRUBIN 1.1 mg/dL (<0.1-1.0); TOTAL PROTEIN 5.7 g/dL (6.4-8.2)
[2018-04-11 12:10] VITALS: BP 111/69
[2018-04-11 12:55] LABS: HEMATOCRIT 25.6 % (37.0-47.0)
[2018-04-11 13:00] LABS: HEMOGLOBIN 8.6 gm/dL (12.0-15.0)
[2018-04-11] MEDS ORDERED: METOPROLOL SUCC25 M1 PO (13:43)
[2018-04-11] MEDS ORDERED: MUCINEX DM ER1 EAC1 PO (13:45)
[2018-04-11] MEDS ORDERED: FOLIC ACID 1 MG1 MG PO (13:47)
[2018-04-11] MEDS ORDERED: PROTONIX40 M1 PO (13:47)
[2018-04-11 13:51] LABS: PROTIME 10.7 Seconds (9.3-11.4)
[2018-04-11 14:08] VITALS: BP 111/69
--- NOTE | 2018-04-11 14:46 | NUR ---
Pt dcing home this afternoon. Pt declined therapy eval and she has been up ad felipa in her room. Pt to followup with GI as an outpt. No cm interventions indicated.
== END 2018-04-11 15:10 | disposition home or self-care (01) | DRG 315 ==
LOC: ER 06:54 → EROBS 08:11 → 2N 09:18 → SICU 04-10 17:13 → 2N 04-10 18:12 → ENTRNSPT 04-11 14:47 → EDTRNSPTSTS 04-11 15:08 → 2N 04-11 15:10
PROVIDERS: Emergency Medicine; Hospitalist; Nurse Practitioner; ADMIT Internal Medicine
PROC: 30233N1 Transfusion of Nonautologous Red Blood Cells into Peripheral Vein, Percutaneous Approach (ICD-10-PCS; principal; 2018-04-09)
DX: T82.118A Breakdown (mechanical) of other cardiac electronic device, initial encounter (principal); I42.8 Other cardiomyopathies; J44.1 Chronic obstructive pulmonary disease with (acute) exacerbation; K92.2 Gastrointestinal hemorrhage, unspecified; I10 Essential (primary) hypertension; E11.9 Type 2 diabetes mellitus without complications; D64.9 Anemia, unspecified; E83.42 Hypomagnesemia; E78.5 Hyperlipidemia, unspecified; F17.210 Nicotine dependence, cigarettes, uncomplicated; R00.0 Tachycardia, unspecified; D69.6 Thrombocytopenia, unspecified; Y83.8 Other surgical procedures as the cause of abnormal reaction of the patient, or of later complication, without mention of misadventure at the time of the procedure; Y92.89 Other specified places as the place of occurrence of the external cause; Z82.49 Family history of ischemic heart disease and other diseases of the circulatory system; Z83.3 Family history of diabetes mellitus; Z91.14 Patient's other noncompliance with medication regimen; Z71.6 Tobacco abuse counseling
CPT/HCPCS: 10081; 10194; 10797